=== PATIENT | male | born 1960 | race Caucasian/White ===

== ENCOUNTER → 2021-02-10 09:37 | Outpatient (BNVA) | payer BC, SELFPAY | PROVIDERS: Family Provider Nurse Practitioner Family; PCP Nurse Practitioner Family; Visit Provider Internal Medicine | DX: R76.8 Other specified abnormal immunological findings in serum (principal); M25.50 Pain in unspecified joint; M25.569 Pain in unspecified knee; Z79.899 Other long term (current) drug therapy; Z11.59 Encounter for screening for other viral diseases; Z82.61 Family history of arthritis | CPT/HCPCS: 36415; 99204 ==

== ENCOUNTER 2021-02-10 13:39 | Outpatient (CLI) | payer BC, SELFPAY ==
--- NOTE | 2021-02-10 13:43 | XR_ITS ---
WS: [id number] RIGHT HAND: 2 VIEW(S) TECHNIQUE: PA and lateral. HISTORY: Pain. COMPARISON: None available. No acute fracture or dislocation. Mild narrowing of the interphalangeal joint spaces and the radiocarpal joint space. No erosions. No s ignificant soft tissue swelling. XR/XR hand RT 2V 11964 IMPRESSION: Suspect mild changes of early osteoarthritis.
--- NOTE | 2021-02-10 13:43 | XR_ITS ---
WS: [id number] LEFT KNEE: 2 VIEW(S) TECHNIQUE: AP and lateral. HISTORY: M25.569 - Pain in unspecified knee COMPARISON: None available. Small osteophytes along the medial compartment joint line. No fracture. No joint effusion. No soft tissue abnormality. XR/XR knee LT 1-2V 28785 IMPRESSION: Minimal osteoarthritis medial compartment.
--- NOTE | 2021-02-10 13:43 | XR_ITS ---
WS: [id number] RIGHT KNEE: 2 VIEW(S) TECHNIQUE: AP and lateral. HISTORY: M25.569 - Pain in unspecified knee COMPARISON: None available. Minimal medial and patellofemoral joint space narrowing with small osteophytes. No fractures. No chondrocalcinosis. No joint effusion. Popliteal artery calcifications. XR/XR knee RT 1-2V 39916 IMPRESSION: 1. Very mild medial and patellofemoral joint space narrowing and osteophytosis . 2. Popliteal artery calcifications.
--- NOTE | 2021-02-10 13:43 | XR_ITS ---
WS: [id number] LEFT HAND: 2 VIEW(S) TECHNIQUE: PA and lateral. HISTORY: Pain for 6 months. COMPARISON: None available. No acute fracture or dislocation. Minimal narrowing of the interphalangeal joint spaces. Osteophyte and narrowing of the distal radial ulnar joint. No erosions. No soft tissue edema. XR/XR hand LT 2V 68055 IMPRESSION: Mild changes of early osteoarthritis.
== END 2021-02-10 13:40 | disposition home or self-care (01) ==
PROVIDERS: PCP Nurse Practitioner Family; Visit Provider Internal Medicine
DX: M25.50 Pain in unspecified joint (principal); M25.569 Pain in unspecified knee; R76.8 Other specified abnormal immunological findings in serum; Z11.59 Encounter for screening for other viral diseases
CPT/HCPCS: 73120; 73560; 81003; 82306; 85651; 86140; 86160; 86162; 86200; 86235; 86255; 86376; 86704; 86803; 87340

== ENCOUNTER 2021-06-18 16:23 | Emergency (ER) | payer BC, SELFPAY ==
--- NOTE | 2021-06-18 16:25 | ECG_ITS ---
[facility] Test Date: 2021-06-18 Pat Name: Ruben Morales Department: Room: Gender: Male [employer]: : 1960 Requested By: Nevaeh Fleix Order Number: [id number] Leticia MD: Godfrey Sims M.D. Measurements Intervals [place] Rate: 57 P: 61 [place]: 179 QRS: 69 QRSD: 101 T: 37 QT: 400 QTc: 391 Interpretive Statements SINUS BRADYCARDIA LOW QRS VOLTAGE IN PRECORDIAL LEADS [QRS DEFLECTION < 1.0 mV IN CHEST LEADS] SEPTAL MYOCARDIAL INFARCTION , OF INDETERMINATE AGE [40+ ms Q WAVE IN V1/V2] No previous ECG available for comparison Electronically Signed On 06-18-2021 19:07:09 CDT by Godfrey Sims M.D. [id number]
--- NOTE | 2021-06-18 16:25 | XRR_ITS ---
PROCEDURE INFORMATION: Exam: XR Chest Exam date and time: 06/18/2021 5:04 PM Age: 60 years old Clinical indication: Pain; Chest pressure; Additional info: Chest pain TECHNIQUE: Imaging protocol: XR of the chest. Views: 1 view. COMPARISON: CR Shoulder 2+ views RIGHT* [id number] 02/08/2018 2:32 PM FINDINGS: Lungs: Unremarkable. No consolidation. Pleural spaces: Unremarkable. No pleural effusion. No pneumothorax. Heart/Mediastinum: Unremarkable. No cardiomegaly. Bones/joints: Partial resection of the distal right clavicle. XR/XR chest 1V portable [id number] IMPRESSION: No acute findings.
[2021-06-18 16:31] VITALS: BP 137/85; PULSE 64; RESP 18; TEMP 36.7; O2SAT 96; BMI 29.2
--- NOTE | 2021-06-18 16:44 | W.ED.CHESTPA ---
Documented by User: Ahsan Linton DO 06/20/21 06:30 HPI - Chest Pain General: Chief Complaint: Chest Pain Stated Complaint: chest pain Time Seen by Provider: 06/18/21 16:37 Source: patient Mode of arrival: ambulatory Limitations: no limitations History of Present Illness: 60-year-old male presents emergency room complaining of some chest discomfort. 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 He has a history of coronary disease and had a stent placed a little over a year ago in [place] February 2020. He did evidently have some injury at that event he relates that immediately after the episode his ejection fraction was down around 30 to 40% of than a repeat echo months later showed an improvement to around 50%. He was on clopidogrel for an entire year after that and he stopped in February 2021. He does not smoke he is not diabetic he is on several antihypertensives and a statin. He is not recently been having any other episodes of chest pain beyond today's episode he does regularly take aspirin. He did not take any aspirin today day after this episode besides his usual once a day dose. Chest pain resolved about 10 minutes after taking the nitro and has not recurred. When I seen the patient he said he is having no chest pain nurses notes that he reported still having chest pain 3 of 10 on the right side of his chest. We will move back to recheck with the patient he states that the worst pain got throughout the entire episode is a 3-4 before he took the nitro after that it went down to 1 he says it stayed about the same initially was on the left side of his chest now he reports no 1 of 10 pain being on the right side. He never had any radiation to his neck back or arms like he did when he had the stent back in [place] complaint: chest pain Pertinent past history: coronary artery disease Onset (ago): minute(s) Timing of current episode: episodic Prior episodes: No Onset: during exertion (Very mild) Pain location: right chest Pain radiation: none Severity: mild Quality: aching and heaviness Relieving factors: nitroglycerin Exacerbating factors: nothing Associated symptoms: Deny abdominal pain, diaphoresis, dyspnea, fever(s), leg edema, nausea, palpitations, sense of impending doom, syncope or vomiting Treatment prior to arrival: nitroglycerin Risk Factors: Coronary artery disease risk factors: hyperlipidemia and hypertension Review of Systems Const: Denies: fever(s), chills, body aches or diaphoresis ENMT: Denies: throat pain, ear or mastoid pain, nasal discharge or nasal congestion Card: Reports: chest pain; Denies: palpitations, irregular heart rhythm, edema, swelling of feet/ankles or syncope Resp: Denies: dyspnea GI: Denies: abdominal pain, nausea or vomiting : Denies: flank pain, difficulty urinating, dysuria, urinary frequency or urinary urgency Skin/Breast: Denies: rash or pruritus PFSH ED PFSH: Medical History Coronary artery disease Hyperlipidemia Hypertension Surgical History Hx of heart surgery 100% blockage Hx of shoulder surgery Family History Mother Cancer Diabetes Mother No problems noted. Father Hyperlipidemia Hypertension Heart attack Rheumatoid arthritis Denies family history of Lupus Stroke Social History Alcohol intake: never History of recent travel: No Physical Exam Const: GENERAL APPEARANCE: cooperative and comfortable ORIENTATION/CONSCIOUSNESS: Yes awake, Yes oriented to person, Yes oriented to place and Yes oriented to time HENMT: COMMON NORMALS: normocephalic, atraumatic and hearing grossly normal bilaterally HEAD & SCALP: normocephalic and atraumatic Neck/C-Spine: COMMON NORMALS: no JVD Resp: COMMON NORMALS: normal respiratory effort, No retractions, No use of accessory muscles and clear to auscultation bilaterally AUSCULTATION: clear to auscultation bilaterally Cardio: COMMON NORMALS: no JVD, regular rate, regular rhythm and No murmurs present (Cardio) RATE: regular rate RHYTHM: regular rhythm GI: COMMON NORMALS: Soft to palpation and No hepatosplenomegaly present AUSCULTATION: Yes normoactive bowel sounds PALPATION: Yes Soft to palpation, No Tenderness to palpation present (GI), No Guarding due to palpation present (GI) and Yes No hepatosplenomegaly present Extremity: COMMON NORMALS: normal to inspection, capillary refill normal, no clubbing, cyanosis or edema, no calf tenderness and no pedal edema Neuro: SENSORIUM/ORIENTATION: Yes oriented to person, Yes oriented to place and Yes oriented to time Skin: COMMON NORMALS: no rashes or lesions noted GENERAL SKIN EXAM: no rashes or lesions noted Course Vital Signs: Vital signs: Vital Signs Temperature 98.1 F 06/18/21 16:31 Pulse Rate 63 06/18/21 20:07 Respiratory Rate 18 06/18/21 20:07 Blood Pressure 128/76 06/18/21 20:07 Pulse Oximetry 96 06/18/21 20:07 MDM - Chest Pain Medical Decision Making Care signed out to Dr. Simon at change of shift. See final notes for diagnosis and disposition. Patient presents here with chest pain he has been pain-free here initial repeat troponin here negative no signs of acute heart attack or pulmonary embolism. 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 Lab Data : 06/18/21 16:55 06/18/21 16:55 Radiology Impressions Chest X-Ray 06/18/21 16:25 IMPRESSION: No acute findings. Laboratory Results WBC 6.1 10^3/uL (4.0-10.0) 06/18/21 16:55 RBC 4.61 10^6/uL (4.1-5.3) 06/18/21 16:55 Hgb 13.8 g/dL (11.7-16.6) 06/18/21 16:55 Hct 42.2 % (42.0-52.0) 06/18/21 16:55 MCV 91.5 fl (80-94) 06/18/21 16:55 MCH 29.9 pg (28.0-34.0) 06/18/21 16:55 MCHC 32.7 g/dL (30.0-36.0) 06/18/21 16:55 RDW 13.3 % (12.1-15.1) 06/18/21 16:55 Plt Count 218 10^3/cmm (130-400) 06/18/21 16:55 MPV 10.4 fL (7.4-10.4) 06/18/21 16:55 Neut % (Auto) 58.8 % 06/18/21 16:55 Lymph % (Auto) 27.5 % 06/18/21 16:55 [place] % (Auto) 8.6 % 06/18/21 16:55 Eos % (Auto) 3.3 % 06/18/21 16:55 Baso % (Auto) 1.6 % 06/18/21 16:55 Neut # (Auto) 3.61 10^3/uL (1.8-7.7) 06/18/21 16:55 Lymph # (Auto) 1.7 10^3/uL (0.8-4.8) 06/18/21 16:55 [place] # (Auto) 0.5 10^3/uL (0.2-0.9) 06/18/21 16:55 Eos # (Auto) 0.2 10^3/uL (0.0-0.8) 06/18/21 16:55 Baso # (Auto) 0.1 10^3/uL (0.0-0.1) 06/18/21 16:55 Nucleated RBC % (auto) 0 % 06/18/21 16:55 Nucleated RBCs # 0.0 /100WBC 06/18/21 16:55 Sodium 139 mmol/L (136-145) 06/18/21 16:55 Potassium 4.3 mmol/L (3.5-5.1) 06/18/21 16:55 Chloride 106 mmol/L (98-107) 06/18/21 16:55 Carbon Dioxide 26 mmol/L (22-29) 06/18/21 16:55 Anion Gap 11.3 (5-19) 06/18/21 16:55 BUN 20 mg/dL (8-23) 06/18/21 16:55 Creatinine 1.3 mg/dL (0.7-1.2) H 06/18/21 16:55 GFR Calculation 55.9 mL/min (90-130) L 06/18/21 16:55 Glucose 132 mg/dL (65-115) H 06/18/21 16:55 Calculated Osmolality 292 mOsm/kg (285-295) 06/18/21 16:55 Calcium 9.6 mg/dL (8.5-10.5) 06/18/21 16:55 Troponin T Baseline 9 ng/L (0-15) 06/18/21 16:55 Troponin T 120 Minute 7.20 ng/L (0-15) 06/18/21 19:11 Delta Troponin T Not Reportable 06/18/21 19:11 Discharge Plan Discharge Patient Disposition: Home Clinical Impression: Chest pain Qualifiers: Chest pain type: unspecified Qualified Code(s): R07.9 - Chest pain, unspecified Condition: Stable Prescriptions: No Action bupropion HCl 150 mg tablet sustained-release 12 hr 150 mg PO BID 0RF atorvastatin 80 mg tablet 80 mg PO DAILY 0RF metoprolol succinate [Toprol XL] 25 mg tablet extended release 24 hr 12.5 mg PO DAILY 0RF aspirin [Adult Aspirin Regimen] 81 mg tablet,delayed release (DR/EC) 81 mg PO DAILY 0RF pantoprazole 40 mg tablet,delayed release (DR/EC) 40 mg PO DAILY 0RF clopidogrel [Plavix] 75 mg tablet 75 mg PO DAILY 0RF olmesartan [Benicar] 5 mg tablet 5 mg PO DAILY 0RF naproxen sodium 220 mg capsule 220 mg PO BID 0RF nitroglycerin 0.4 mg tablet, sublingual 0.4 mg sublingual Q5M PRN0RF Rx Instructions: do not exceed 3 doses per episode tramadol 50 mg tablet 50 mg PO BID PRN0RF multivitamin Tablet 1 tab PO DAILY 0RF Discharge Orders: Discharge ED (Routine); Ordered 06/18/21 Ordered By: Yvonne Simon Referrals: Moreno,Julia BOARD MEMBER [Primary Care Provider] - 1-3 days Discharge Diet: Advance as tolerated Discharge Activity: Resume usual activity Patient Instructions: Chest Pain (ED) Coding Level of Care Code ED Fabric Worker Fitter for Chg Fwd Exam Comprehensive Documented by User: Yvonne Simon MD 06/18/21 19:54 HPI - Chest Pain General: Chief Complaint: Chest Pain Stated Complaint: chest pain Time Seen by Provider: 06/18/21 16:37 PFSH ED PFSH: Medical History Coronary artery disease Hyperlipidemia Hypertension Surgical History Hx of heart surgery 100% blockage Hx of shoulder surgery Family History Mother Cancer Diabetes Mother No problems noted. Father Hyperlipidemia Hypertension Heart attack Rheumatoid arthritis Denies family history of Lupus Stroke Social History Alcohol intake: never History of recent travel: No Course Vital Signs: Vital signs: Vital Signs Temperature 98.1 F 06/18/21 16:31 Pulse Rate 63 06/18/21 20:07 Respiratory Rate 18 06/18/21 20:07 Blood Pressure 128/76 06/18/21 20:07 Pulse Oximetry 96 06/18/21 20:07 MDM - Chest Pain Medical Decision Making Patient presents here with chest pain he has been pain-free here initial repeat troponin here negative no signs of acute heart attack or pulmonary embolism. 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 Lab Data : 06/18/21 16:55 06/18/21 16:55 Radiology Impressions Chest X-Ray 06/18/21 16:25 IMPRESSION: No acute findings. Laboratory Results WBC 6.1 10^3/uL (4.0-10.0) 06/18/21 16:55 RBC 4.61 10^6/uL (4.1-5.3) 06/18/21 16:55 Hgb 13.8 g/dL (11.7-16.6) 06/18/21 16:55 Hct 42.2 % (42.0-52.0) 06/18/21 16:55 MCV 91.5 fl (80-94) 06/18/21 16:55 MCH 29.9 pg (28.0-34.0) 06/18/21 16:55 MCHC 32.7 g/dL (30.0-36.0) 06/18/21 16:55 RDW 13.3 % (12.1-15.1) 06/18/21 16:55 Plt Count 218 10^3/cmm (130-400) 06/18/21 16:55 MPV 10.4 fL (7.4-10.4) 06/18/21 16:55 Neut % (Auto) 58.8 % 06/18/21 16:55 Lymph % (Auto) 27.5 % 06/18/21 16:55 [place] % (Auto) 8.6 % 06/18/21 16:55 Eos % (Auto) 3.3 % 06/18/21 16:55 Baso % (Auto) 1.6 % 06/18/21 16:55 Neut # (Auto) 3.61 10^3/uL (1.8-7.7) 06/18/21 16:55 Lymph # (Auto) 1.7 10^3/uL (0.8-4.8) 06/18/21 16:55 [place] # (Auto) 0.5 10^3/uL (0.2-0.9) 06/18/21 16:55 Eos # (Auto) 0.2 10^3/uL (0.0-0.8) 06/18/21 16:55 Baso # (Auto) 0.1 10^3/uL (0.0-0.1) 06/18/21 16:55 Nucleated RBC % (auto) 0 % 06/18/21 16:55 Nucleated RBCs # 0.0 /100WBC 06/18/21 16:55 Sodium 139 mmol/L (136-145) 06/18/21 16:55 Potassium 4.3 mmol/L (3.5-5.1) 06/18/21 16:55 Chloride 106 mmol/L (98-107) 06/18/21 16:55 Carbon Dioxide 26 mmol/L (22-29) 06/18/21 16:55 Anion Gap 11.3 (5-19) 06/18/21 16:55 BUN 20 mg/dL (8-23) 06/18/21 16:55 Creatinine 1.3 mg/dL (0.7-1.2) H 06/18/21 16:55 GFR Calculation 55.9 mL/min (90-130) L 06/18/21 16:55 Glucose 132 mg/dL (65-115) H 06/18/21 16:55 Calculated Osmolality 292 mOsm/kg (285-295) 06/18/21 16:55 Calcium 9.6 mg/dL (8.5-10.5) 06/18/21 16:55 Troponin T Baseline 9 ng/L (0-15) 06/18/21 16:55 Troponin T 120 Minute 7.20 ng/L (0-15) 06/18/21 19:11 Delta Troponin T Not Reportable 06/18/21 19:11 EKG Data EKG 1: I personally reviewed and interpreted this EKG as follows: EKG interpretation date: 06/18/21 EKG interpretation time: 18:17 Interpretation: sinus cornelia hr [address] or t wave abnormalities qrs 104 qtc 395 Discharge Plan Discharge Patient Disposition: Home Clinical Impression: Chest pain Qualifiers: Chest pain type: unspecified Qualified Code(s): R07.9 - Chest pain, unspecified Condition: Stable Prescriptions: No Action bupropion HCl 150 mg tablet sustained-release 12 hr 150 mg PO BID 0RF atorvastatin 80 mg tablet 80 mg PO DAILY 0RF metoprolol succinate [Toprol XL] 25 mg tablet extended release 24 hr 12.5 mg PO DAILY 0RF aspirin [Adult Aspirin Regimen] 81 mg tablet,delayed release (DR/EC) 81 mg PO DAILY 0RF pantoprazole 40 mg tablet,delayed release (DR/EC) 40 mg PO DAILY 0RF clopidogrel [Plavix] 75 mg tablet 75 mg PO DAILY 0RF olmesartan [Benicar] 5 mg tablet 5 mg PO DAILY 0RF naproxen sodium 220 mg capsule 220 mg PO BID 0RF nitroglycerin 0.4 mg tablet, sublingual 0.4 mg sublingual Q5M PRN0RF Rx Instructions: do not exceed 3 doses per episode tramadol 50 mg tablet 50 mg PO BID PRN0RF multivitamin Tablet 1 tab PO DAILY 0RF Discharge Orders: Discharge ED (Routine); Ordered 06/18/21 Ordered By: Yvonne Simon Referrals: Moreno,Julia, BOARD MEMBER [Primary Care Provider] - 1-3 days Discharge Diet: Advance as tolerated Discharge Activity: Resume usual activity Patient Instructions: Chest Pain (ED) Coding Level of Care Code ED Fabric Worker Fitter for g Fwd Exam Comprehensive
[2021-06-18] MEDS: aspirin 81 mg Chew Tablet 324 MG PO (16:50)
--- NOTE | 2021-06-18 17:01 | PC.NURSE ---
first aid attendant placed on patient.
[2021-06-18 17:02] LABS: Basophils # 0.1 10^3/uL (0.0-0.1); Basophils % 1.6 %; Eosinophils # 0.2 10^3/uL (0.0-0.8); Eosinophils % 3.3 %; Hematocrit 42.2 % (42.0-52.0); Hemoglobin 13.8 g/dL (11.7-16.6); Lymphocytes # 1.7 10^3/uL (0.8-4.8); Lymphocytes % 27.5 %; Mean Corpuscular HGB Conc 32.7 g/dL (30.0-36.0); Mean Corpuscular Hemoglobin 29.9 pg (28.0-34.0); Mean Corpuscular Volume 91.5 fl (80-94); Mean Platelet Volume 10.4 fL (7.4-10.4); Monocytes # 0.5 10^3/uL (0.2-0.9); Monocytes % 8.6 %; Neutrophils # 3.61 10^3/uL (1.8-7.7); Neutrophils % 58.8 %; Nucleated Red Blood Cells % 0 %; Platelet Count 218 10^3/cmm (130-400); Red Blood Count 4.61 10^6/uL (4.1-5.3); Red Cell Distribution Width 13.3 % (12.1-15.1); White Blood Count 6.1 10^3/uL (4.0-10.0)
[2021-06-18 17:24] LABS: Anion Gap 11.3 (5-19); Blood Urea Nitrogen 20 mg/dL (8-23); Calcium 9.6 mg/dL (8.5-10.5); Carbon Dioxide 26 mmol/L (22-29); Chloride 106 mmol/L (98-107); Glomerular Filtration Rate 55.9 mL/min (90-130); Glucose 132 mg/dL (65-115); Osmolality Calculated 292 mOsm/kg (285-295); Potassium 4.3 mmol/L (3.5-5.1); Sodium 139 mmol/L (136-145)
[2021-06-18 17:25] LABS: Troponin(5th) Baseline 9 ng/L (0-15)
[2021-06-18 18:01] VITALS: BP 136/72; PULSE 63; RESP 21; O2SAT 95
--- NOTE | 2021-06-18 18:03 | PC.NURSE ---
Patient in bed, denies any needs at this time. denies pain
--- NOTE | 2021-06-18 18:25 | ECG_ITS ---
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 Measurements Intervals [place] Rate: 56 P: 55 DE: 174 QRS: 71 QRSD: 104 T: 34 QT: 405 QTc: 391 Interpretive Statements SINUS BRADYCARDIA LOW QRS VOLTAGE IN PRECORDIAL LEADS [QRS DEFLECTION < 1.0 mV IN CHEST LEADS] SEPTAL MYOCARDIAL INFARCTION , PROBABLY OLD [40+ ms Q WAVE IN V1/V2] Compared to ECG 06/18/2021 16:39:49 No significant changes Electronically Signed On 06-18-2021 19:10:17 CDT by Godfrey Sims M.D. [email or web address]
[2021-06-18 20:07] VITALS: BP 128/76; PULSE 63; RESP 18; O2SAT 96
== END 2021-06-18 20:09 | disposition home or self-care (01) ==
PROVIDERS: Emergency Medicine; Emergency Provider Emergency Medicine; PCP Nurse Practitioner Family
DX: R07.9 Chest pain, unspecified (principal); I25.10 Atherosclerotic heart disease of native coronary artery without angina pectoris; Z95.5 Presence of coronary angioplasty implant and graft; E78.5 Hyperlipidemia, unspecified; I10 Essential (primary) hypertension; Z82.49 Family history of ischemic heart disease and other diseases of the circulatory system; Z79.02 Long term (current) use of antithrombotics/antiplatelets; Z79.82 Long term (current) use of aspirin
CPT/HCPCS: 36415; 71045; 80048; 84484; 85025; 93005; 99283